=== PATIENT | female | born 1970 | race Caucasian/White ===

== ENCOUNTER → 2018-04-21 | Outpatient (CLI) | payer OTHER, BC ==
[~2018-04-21] MED LIST: HYDR-6016 PO; IBUP800T37 PO; MULT1TAB54 PO; OMEG500C5 PO
--- NOTE | 2018-04-21 11:18 | RADIOLOGY IMAGING REPORT ---
FACILITY: [facility] - [place] PATIENT NAME: STEPHANIE MUNOZ : [id number] MR: [id number] V: [id number] EXAM DATE: [id number] ORDERING PHYSICIAN: JADA LEBRON TECHNOLOGIST: Temi Roy PROCEDURE:BILATERAL DIGITAL SCREENING MAMMOGRAM WITH CAD ASSISTED INTERPRETATION & 3D TOMOSYNTHESIS COMPARISON:Prior mammograms 04/07/17, 03/20/16, 03/15/15, 03/14/14, 08/26/12. INDICATIONS:screening implants FINDINGS: Again noted are bilateral subpectoral breast implants. There is no evidence of implant rupture or leakage. Moderately dense fibroglandular tissue is seen anterior to the implants. The parenchymal pattern has remained stable allowing for difference in mammographic technique & patient positioning. There is no evidence of malignant appearing mass, malignant appearing calcifications or other secondary sign of malignancy in either breast. DIAGNOSTIC CATEGORY 2--BENIGN FINDING. RECOMMENDATIONS: ROUTINE MAMMOGRAM AND CLINICAL EVALUATION. IMPRESSION: BIRADS 2: Benign finding. No significant abnormality is seen. Dictated by: Roxanne Urban M.D. on 04/21/2018 at 10:42 Transcribed by: EVAN on 04/21/2018 at 10:54 Approved by: Roxanne Urban M.D. on 04/21/2018 at 11:18 [facility]
== END ==
LOC: MAMO 00:36
PROVIDERS: ATTEND Obstetrics & Gynecology
DX: Z12.31 Encounter for screening mammogram for malignant neoplasm of breast (principal); Z80.3 Family history of malignant neoplasm of breast
CPT/HCPCS: 77063; 77067